=== PATIENT | male | born 1955 | race Caucasian/White ===

== ENCOUNTER 2018-06-11 09:39 | Emergency (ER) | payer OTHER, MEDICAID ==
[~2018-06-11] VITALS: Ht 157.5 cm; Wt 64.4 kg
[~2018-06-11 09:39] MED LIST: APAP/HYDROCODON1 T13 PO; CLARITIN10 MG PO; DIOVAN320 MG PO; GOOD SENSE OMEP20 MG PO; KETACONAZOLE TOP; NPHOS PO; ROC1I IV; STROMECTOL3 MG PO; TRIAMCINOLONE AC0.13 TOP; TYL325 PO; ZOCOR20 MG PO; ZYLOPRIM300 MG PO
[2018-06-11 09:48] VITALS: Ht 157.5 cm; Wt 64.4 kg
[2018-06-11 11:29] VITALS: BP 132/81
== END 2018-06-11 11:29 | disposition home or self-care (01) ==
LOC: ED 09:39
DX: S63.501A Unspecified sprain of right wrist, initial encounter (principal); W19.XXXA Unspecified fall, initial encounter; Y93.89 Activity, other specified; Y92.89 Other specified places as the place of occurrence of the external cause; Y99.8 Other external cause status

== ENCOUNTER 2018-06-25 10:08 | Emergency (ER) | payer OTHER, MEDICAID ==
[~2018-06-25] VITALS: Ht 157.5 cm; Wt 63.5 kg
[2018-06-25 10:33] VITALS: Ht 157.5 cm; Wt 63.5 kg
[2018-06-25 12:00] VITALS: BP 119/71
== END 2018-06-25 12:00 | disposition home or self-care (01) ==
LOC: ED 10:08
DX: S63.91XA Sprain of unspecified part of right wrist and hand, initial encounter (principal); I10 Essential (primary) hypertension; E78.00 Pure hypercholesterolemia, unspecified; X58.XXXA Exposure to other specified factors, initial encounter; Y93.89 Activity, other specified; Y92.89 Other specified places as the place of occurrence of the external cause; Y99.8 Other external cause status
CPT/HCPCS: Q0092